=== PATIENT | female | born 1965 | race Hispanic/Latino ===

== ENCOUNTER 2025-01-03 09:55 | Observation (INO) | payer OTHER ==
[2025-01-03] VITALS (11 sets, daily range): BP systolic 133–136; BP diastolic 65–73; PULSE 53–74; RESP 16–17; TEMP 97.6–207.9; O2SAT 99–100
[~2025-01-03] VITALS: Ht 157.5 cm; Wt 57.6 kg
[2025-01-03] MEDS ORDERED: SODIUM CHLORIDE FLUSH 10 ML SYR IV PRN (10:30)
[2025-01-03 10:34] LABS: BASOPHILS % 0.3 % (0.0-1.0); EOSINOPHILS # (AUTO) 0.2 (0.0-0.4); EOSINOPHILS % 1.9 % (0.0-6.0); HEMATOCRIT 39.1 % (34.2-44.1); HEMOGLOBIN 13.5 g/dL (12.0-16.0); LYMPHOCYTES # (AUTO) 3.3 (1.0-3.2); LYMPHOCYTES % 42.6 % (18.0-39.1); MEAN CORPUSCULAR HEMOGLOBIN 30.1 pg (28-32); MEAN CORPUSCULAR HGB CONC 34.5 g/dL (31-35); MEAN CORPUSCULAR VOLUME 87.1 fL (81-99); MONOCYTES # (AUTO) 0.3 (0.2-0.8); MONOCYTES % 3.3 % (4.4-11.3); NEUTROPHILS # (AUTO) 4.1 (2.1-6.9); NEUTROPHILS % 51.6 % (38.7-80.0); PLATELET COUNT 237 x10e3/uL (140-360); RED BLOOD COUNT 4.49 x10e6/uL (3.6-5.1); RED CELL DISTRIBUTION WIDTH 13.4 % (11.7-14.4); WHITE BLOOD COUNT 7.84 x10e3/uL (4.8-10.8)
[2025-01-03 11:00] LABS: ALANINE AMINOTRANSFERASE 17 IU/L (0-55); ALBUMIN 4.1 g/dL (3.5-5.0); ALBUMIN/GLOBULIN RATIO 1.3 (0.8-2.0); ALKALINE PHOSPHATASE 65 IU/L (40-150); BILIRUBIN,TOTAL 0.6 mg/dL (0.2-1.2); BLOOD UREA NITROGEN 9 mg/dL (7-26); BUN/CREATININE RATIO 11 (6-25); CALCIUM 8.9 mg/dL (8.4-10.2); CARBON DIOXIDE 22 mmol/L (22-29); CHLORIDE 110 mmol/L (98-107); CREATININE, SERUM 0.81 mg/dL (0.57-1.11); EST GLOMERULAR FILTRATION RATE 83 ML/MIN (>=60); GLUCOSE 155 mg/dL (74-118); SODIUM 143 mmol/L (136-145); TOTAL PROTEIN 7.2 g/dL (6.5-8.1)
[2025-01-03 11:06] LABS: TROPONIN I < 0.001 ng/mL (0-0.300)
[2025-01-03] MEDS ORDERED: SODIUM CHLORIDE FLUSH 10 ML SYR INJ PRN (14:15)
[2025-01-03] MEDS ORDERED: ONDANSETRON HCL INJ 2MG/ML 2ML 2 MG/ML VIAL IV PRN (14:15)
[2025-01-03] MEDS ORDERED: METOPROLOL TARTRATE INJ 1 MG/ML VIAL IV PRN (17:45)
[2025-01-03] MEDS ORDERED: DOCUSATE SODIUM 100 MG CAP PO PRN (17:45)
[2025-01-03] MEDS ORDERED: SIMETHICONE 80 MG CHEW PO PRN (17:45)
[2025-01-03] MEDS ORDERED: ALBUTEROL/IPRATROPIUM 3 ML NEB NEB PRN (17:45)
[2025-01-03 18:14] LABS: CHOL/HDL RATIO 3.4 (3.0-3.6)
[2025-01-03] MEDS ORDERED: MELATONIN 3 MG TAB PO PRN (21:00)
[2025-01-04] VITALS (15 sets, daily range): BP systolic 116–138; BP diastolic 63–89; PULSE 53–90; RESP 16–18; TEMP 96.3–97.8; O2SAT 99–100
[2025-01-04 03:03] LABS: CLARITY,URINE CLEAR (CLEAR); COLOR,URINE YELLOW (YELLOW); GLUCOSE, URINE NEGATIVE (NEGATIVE); LEUKOCYTE ESTERASE ,URINE NEGATIVE (NEGATIVE); NITRITE,URINE NEGATIVE (NEGATIVE); PH,URINE 6 (5 - 7); PROTEIN,URINE DIPSTICK NEGATIVE (NEGATIVE)
[2025-01-04 03:04] LABS: BILIRUBIN,URINE NEGATIVE (NEGATIVE); KETONES,URINE NEGATIVE (NEGATIVE); URINE UROBILINOGEN 0.2 mg/dL (0.2 - 1)
[2025-01-04 04:47] LABS: BACTERIA,URINE FEW /HPF; EPITHELIAL CELLS,URINE FEW /LPF; RBC,URINE 0-5 /HPF (0-5); WBC,URINE (MAN) 0-5 /HPF (0-5)
[2025-01-04 06:03] LABS: BASOPHILS % 0.5 % (0.0-1.0); EOSINOPHILS # (AUTO) 0.2 (0.0-0.4); HEMOGLOBIN 12.8 g/dL (12.0-16.0); LYMPHOCYTES # (AUTO) 2.5 (1.0-3.2); LYMPHOCYTES % 43.8 % (18.0-39.1); MEAN CORPUSCULAR HEMOGLOBIN 29.8 pg (28-32); MEAN CORPUSCULAR HGB CONC 32.8 g/dL (31-35); MEAN CORPUSCULAR VOLUME 90.7 fL (81-99); MONOCYTES # (AUTO) 0.3 (0.2-0.8); MONOCYTES % 5.9 % (4.4-11.3); NEUTROPHILS # (AUTO) 2.6 (2.1-6.9); NEUTROPHILS % 46.4 % (38.7-80.0); PLATELET COUNT 202 x10e3/uL (140-360); RED CELL DISTRIBUTION WIDTH 13.4 % (11.7-14.4)
[2025-01-04 06:34] LABS: ALBUMIN 3.7 g/dL (3.5-5.0); ALBUMIN/GLOBULIN RATIO 1.3 (0.8-2.0); ANION GAP 14.1 mmol/L (8-16); BILIRUBIN,TOTAL 0.6 mg/dL (0.2-1.2); CALCIUM 8.6 mg/dL (8.4-10.2); CREATININE, SERUM 0.77 mg/dL (0.57-1.11); POTASSIUM 4.1 mmol/L (3.5-5.1); TOTAL PROTEIN 6.5 g/dL (6.5-8.1)
[2025-01-04 06:47] LABS: CREATINE KINASE 69 IU/L (29-168)
[2025-01-04 06:59] LABS: TROPONIN I < 0.001 ng/mL (0-0.300)
[2025-01-04] MEDS ORDERED: ROSUVASTATIN CA20 MG PO (08:25)
[2025-01-04] MEDS: ASPIRIN 81 MG ENTERIC COATED PO SCH (08:26)
[2025-01-04] MEDS: ACETAMINOPHEN 325 MG TAB PO PRN (09:46)
[2025-01-04] MEDS ORDERED: SODIUM CHLORIDE 0.9% 100 ML ONE (10:18)
[2025-01-04] MEDS ORDERED: IOPAMIDOL 370 MG/ML 100 ML INFUS..BTL INJ ONE (10:19)
[2025-01-04 13:47] LABS: CREATINE KINASE 63 IU/L (29-168)
[2025-01-04 13:56] LABS: TROPONIN I < 0.001 ng/mL (0-0.300)
[2025-01-05] VITALS: BP 118/72; PULSE 55; RESP 16; TEMP 97; O2SAT 100
[2025-01-05 04:00] VITALS: BP 127/68; PULSE 59; RESP 16; TEMP 97.8; O2SAT 100
[2025-01-05 08:31] VITALS: BP 152/71; PULSE 58; RESP 18; TEMP 98.7; O2SAT 100
[2025-01-05 08:36] VITALS: BP 152/71; PULSE 58; RESP 18; TEMP 98.7; O2SAT 100
[2025-01-05] MEDS ORDERED: ASPIRIN EC81 MG PO (10:12)
[2025-01-05 12:13] VITALS: BP 163/79; PULSE 58; RESP 19; TEMP 98.1; O2SAT 100
== END 2025-01-05 12:10 | disposition home or self-care (01) ==
LOC: ER 10:03 → ERHOLD 14:16 → MED/SURG3 15:04
PROVIDERS: ADMIT Internal Medicine; ATTEND Internal Medicine
DX: R55 Syncope and collapse (principal); R51.9 Headache, unspecified; R73.9 Hyperglycemia, unspecified; Z13.1 Encounter for screening for diabetes mellitus; E04.1 Nontoxic single thyroid nodule; E78.00 Pure hypercholesterolemia, unspecified; M32.9 Systemic lupus erythematosus, unspecified; F17.290 Nicotine dependence, other tobacco product, uncomplicated; Z85.43 Personal history of malignant neoplasm of ovary; Z90.710 Acquired absence of both cervix and uterus; Z79.899 Other long term (current) drug therapy; Z79.82 Long term (current) use of aspirin
CPT/HCPCS: 36415 ×2; 70450; 70496; 70498; 71045; 80053 ×2; 80061; 81001; 82550; 83036; 83880; 84484 ×2; 85025 ×2; 93005 ×2; 93306; 93880; 94760; 97161; 99284; G0378 ×3; J7050; Q9967